=== PATIENT | female | born 1980 | race Two or more races ===

== ENCOUNTER 2017-06-04 12:45 | Emergency (ER) | payer OTHER ==
[~2017-06-04] VITALS: Ht 165.1 cm; Wt 54.4 kg
--- NOTE | 2017-06-04 13:13 | NUR ---
PATIENT TO ED VAGINAL BLEEDING THIS MORNING- BRIGH RED. PER PATIENT SHE IS 3 WEEKS PER HOME PREGANANCY KIT. LMP 03/28/17. DENIES PAIN OR DISCOMFORT. VSS. PENDING MD KRAUSE.
[2017-06-04] MEDS ORDERED: IV NS 0.9% 1,000 ML BAG IV ONE (13:30)
[2017-06-04 13:36] LABS: MEAN CORPUSCULAR HEMOGLOBIN 18 PG (26.0-33.0); MEAN CORPUSCULAR HGB CONC 29 g/dl (31.0-36.0); MEAN CORPUSCULAR VOLUME 63 fL (82-100); PLATELET COUNT (AUTO) 431 /CMM (150-450); RDW COEFFICIENT OF VARIATION 22.5 (11.5-15.0); RED BLOOD CELL COUNT(AUTO) 4.21 MIL/uL (4.0-5.2); WHITE BLOOD COUNT (AUTO) 4.7 K/uL (4.3-11.0)
[2017-06-04 13:57] LABS: HEMOGLOBIN 7.7 g/dL (11.5-14.8); INR 1.03 (0.87-1.13); PROTHROMBIN TIME 10.7 SECS (9.5-12.7)
[2017-06-04 13:58] LABS: HEMATOCRIT 26 % (33-45)
[2017-06-04 14:01] LABS: CALCIUM, SERUM 8.6 mg/dL (8.5-10.1); CREATININE 0.6 mg/dL (0.6-1.3); POTASSIUM 3.9 mmol/L (3.5-5.1)
[2017-06-04 14:05] LABS: LYMPHOCYTES % (MANUAL) 16 % (16-48); MONOCYTES % (MANUAL) 5 % (0-11.0); NEUTROPHILS % (MANUAL) 79 (42-76)
[2017-06-04 14:05] LABS: APPEARANCE,URINE Slightly Cloudy (CLEAR); BILIRUBIN,URINE Negative (NEGATIVE); BLOOD, URINE Moderate Ery/uL (NEGATIVE); COLOR,URINE Yellow (YELLOW); KETONES,URINE Negative (NEGATIVE); LEUKOCYTE ESTERASE ,URINE Trace (NEGATIVE); NITRITE, URINE Negative (NEGATIVE); PH,URINE 5.5 (5.0-8.0); PROTEIN,URINE Negative (NEGATIVE); UGLUCOSE Negative (NEGATIVE); UROBILINOGEN,URINE 0.2 EU/dL (0.2)
[2017-06-04 14:31] LABS: WBC,URINE 0-2 /HPF (0-3)
[2017-06-04 14:32] LABS: BACTERIA,URINE Few /HPF (None Seen); SQUAMOUS EPITHELIAL CELL,UR Few /HPF (None Seen)
[2017-06-04 17:12] VITALS: BP 117/78
--- NOTE | 2017-06-04 17:15 | NUR ---
Patient discharged to home in stable condition. Written and verbal after care instructions given. Patient verbalizes understanding of instruction.IV removed. Catheter intact and site benign. Pressure and 4x4 applied to site. No bleeding noted.
== END 2017-06-04 17:15 | disposition home or self-care (01) ==
LOC: ER 12:48
DX: O03.9 Complete or unspecified spontaneous abortion without complication (principal); D64.9 Anemia, unspecified
CPT/HCPCS: 36415; 76805; 80048; 81001; 84702; 85025; 85730; 87210; 87491; 87591; 96360; 99285; A4606; A6402; J7030; Z7610; 81000-TC

== ENCOUNTER 2017-06-06 17:29 | Emergency (ER) | payer OTHER ==
[~2017-06-06] VITALS: Ht 165.1 cm; Wt 54.4 kg
--- NOTE | 2017-06-06 18:00 | NUR ---
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 TIE FASTENER AT BS FOR EVAL. NAD NOTED. VSS. DENIES ACTIVE BLEEDING. SAFETY AND COMFORT MEASURES. WILL MONITOR.
[2017-06-06 18:11] LABS: MEAN CORPUSCULAR HEMOGLOBIN 18 PG (26.0-33.0); MONOCYTES # (AUTO) 0.3 /CMM (0.1-1.30); RDW COEFFICIENT OF VARIATION 20.8 (11.5-15.0)
[2017-06-06 18:18] LABS: BASOPHILS % (AUTO) 0.9 % (0.0-2.0); HEMATOCRIT 21 % (33-45); LYMPHOCYTES % (AUTO) 27.6 % (20.0-44.0); MEAN CORPUSCULAR HGB CONC 30 g/dl (31.0-36.0); MEAN CORPUSCULAR VOLUME 61 fL (82-100); MONOCYTES % (AUTO) 7.8 % (2.0-12.0); NEUTROPHILS # (AUTO) 2.5 /CMM (1.8-8.9); NEUTROPHILS % (AUTO) 62.7 % (43.0-81.0); PLATELET COUNT (AUTO) 389 /CMM (150-450); RED BLOOD CELL COUNT(AUTO) 3.39 MIL/uL (4.0-5.2); WHITE BLOOD COUNT (AUTO) 3.8 K/uL (4.3-11.0)
[2017-06-06 18:21] LABS: HEMOGLOBIN 6.2 g/dL (11.5-14.8)
--- NOTE | 2017-06-06 18:32 | NUR ---
SENIOR [employer] NET DEVELOPER DEGRASSE AT BS TO DISCUSS POC. PT REFUSES TREATMENT. RISKS/BENEFITS, TEACHINGS PROVIDED. ALL QUESTIONS ANSWERED.
--- NOTE | 2017-06-06 18:52 | NUR ---
Patient discharged to home in stable condition. Written and verbal after care instructions given. Patient verbalizes understanding of instruction.
[2017-06-06 18:53] VITALS: BP 116/77
[2017-06-06 20:28] LABS: LYMPHOCYTES % (MANUAL) 20 % (16-48); MONOCYTES % (MANUAL) 10 % (0-11.0); NEUTROPHILS % (MANUAL) 70 (42-76)
== END 2017-06-06 18:54 | disposition home or self-care (01) ==
LOC: ER 17:30
DX: O99.011 Anemia complicating pregnancy, first trimester (principal); Z3A.00 Weeks of gestation of pregnancy not specified; O03.9 Complete or unspecified spontaneous abortion without complication; R10.2 Pelvic and perineal pain; D64.9 Anemia, unspecified
CPT/HCPCS: 36415; 84702; 85025; 99284; A4606; J7050; Z7610